=== PATIENT | female | born 1985 | race Caucasian/White ===

== ENCOUNTER → 2017-10-06 18:53 | Outpatient (CLI) | payer BC, SELFPAY ==
[2017-10-14 14:38] LABS: HPV Reflexed? NOT INDICATED
== END ==
PROVIDERS: Family Provider Internal Medicine; PCP Internal Medicine; Visit Provider Obstetrics & Gynecology
DX: Z12.4 Encounter for screening for malignant neoplasm of cervix (principal)
CPT/HCPCS: 88175; G0145

== ENCOUNTER 2018-05-21 17:53 | Emergency (ER) | payer BC, SELFPAY ==
[2018-05-21 17:54] VITALS: BP 163/87; PULSE 85; RESP 18; TEMP 36.9; O2SAT 99; BMI 30.2
[2018-05-21 19:07] LABS: Absolute Lymphocyte Count 2.71 X10^3/ul (0.83-4.51); Absolute Neutrophil Count 4.9 X10^3/uL (2.0-7.7); Basophil# 0.02 X10^3/uL; Basophil% 0.3 % (0-1); Eosinophil# 0.04 X10^3/uL; Eosinophils% 0.5 % (0-5); Hematocrit 44.1 % (37-47); Hemoglobin 15.1 g/dl (12.0-15.0); Lymphocyte # 2.71 X10^3/ul (4.0); Lymphocyte % 34.3 % (19-41); Mean Corp Hgb Conc 34.2 g/gl (32-36); Mean Corpuscular Hgb 31.4 pg (27.0-32.0); Mean Corpuscular Volume 91.7 fL (81-99); Monocyte# 0.23 X10^3/uL; Monocyte% 2.9 % (0-10); Neutrophil % 61.9 % (47-70); Platelet Count 229 K/mm3 (150-450); RBC Distribution Width CV 13.7 % (11.6-14.6); RBC Distribution Width SD 46.2 fl (35.1-43.9); Red Blood Count 4.81 M/mm3 (4.2-5.4); White Blood Count 7.9 K/mm3 (4.4-11.0)
[2018-05-21 19:08] LABS: POSITIVE COUNT NO; POSITIVE DIFFERENTIAL NO; POSITIVE MORPHOLOGY NO
[2018-05-21 19:22] LABS: Amylase 52 U/L (25-115); Anion Gap 8 (5-15); BUN 13 mg/dL (7-18); BUN/Creat Ratio 13.9 RATIO (10-20); Calcium,Total 9.2 mg/dL (8.5-10.1); Chloride 107 mmol/L (98-107); Creatinine, Serum 0.94 mg/dL (0.55-1.02); EST Glomerular Filtration Rate 73 mL/min (>60); Est Glom Filt Rate - Afr Amer 88 mL/min (>60); Estimated Creatinine Clearance 64.23 ml/min; Glucose 79 mg/dL (74-106); Lipase 87 U/L (73-393); Potassium 3.6 mmol/L (3.5-5.1); Sodium Level 140 mmol/L (136-145)
[2018-05-21 19:27] LABS: Mucous, Urine 0 SEEN /hpf (<or=2+); Red Blood Cells-Urine 0 SEEN /hpf (0-5)
[2018-05-21 19:51] VITALS: RESP 18
[2018-05-21 19:51] LABS: Color, Urine Yellow (Yellow); Glucose, Dipstick Normal (Normal); Ketone-Dipstick 50 mg/dl (Negative); Leukocyte Esterase-Dipstick 500 /ul (Negative); Nitrite-Dipstick Negative (Negative); Occult Blood-Urine 10 /ul (Negative); Protein-Dipstick 30 mg/dl (Negative); Urine Bilirubin Dipstick Negative (Negative); Urine Clarity Clear (Clear); Urine Urobilinogen Normal (Normal)
--- NOTE | 2018-05-21 19:58 | CT_ITS ---
STUDY: CT ABDOMEN AND PELVIS WITH CONTRAST REASON FOR EXAM: Female, 33 years old. Right-sided abdominal pain RADIATION DOSAGE (If Supplied By Facility): CTDIvol = ( 16.10 ) mGy, DLP = ( 874.99 ) mGycm TECHNIQUE: Transaxial images were obtained from the dome of the diaphragm to the symphysis pubis without oral contrast. 100ML ml of Isovue 300 contrast was administered. Sagittal and coronal images were reconstructed. # of Images: 399 Individualized dose optimization techniques were used for this CT. COMPARISON: None. FINDINGS: The visualized lung bases are unremarkable. The visualized portions of the heart are within normal limits. Normal liver. Normal gallbladder and extrahepatic biliary system. Normal spleen. Normal pancreas. Normal bilateral adrenal glands. Normal right kidney. Normal left kidney. Normal visualized stomach. Normal small intestine. Minor diverticular changes of the sigmoid colon without evidence for acute diverticulitis. The appendix does not fill with contrast however there is no evidence for dilatation, thickening of the hoang or periappendiceal inflammatory changes Normal abdominal aorta. Normal inferior vena cava. Normal retroperitoneum. Normal urinary bladder. Small fat-containing umbilical hernia.. Normal osseous structures. CT/Abdomen/Pelvis WITH Contrast IMPRESSION: Nonfilling of the appendix however no definitive evidence for acute appendicitis. Clinical correlation recommended Minor diverticular changes of the sigmoid colon without evidence for acute diverticulitis. No acute abnormalities Electronically Signed: Anatoly Wolf MD at 22:05 EDT , Service support ,
[2018-05-21 20:04] LABS: White Blood Cells 5-10 SEEN /hpf (0-5)
[2018-05-21 20:05] LABS: Bacteria 1+ /hpf (None Seen); Squamous Epithelial Cells - UA 25-50 SEEN /hpf (5-10)
[2018-05-21 21:00] VITALS: PULSE 72; RESP 18; O2SAT 98
[2018-05-21 22:16] VITALS: BP 161/31; PULSE 76; RESP 18; O2SAT 97
--- NOTE | 2018-05-21 23:29 | ED.DEP ---
ED Disposition - Plan for ED Patient: Chief Complaint: Abd Pain Instructions: ED Abdominal Pain Unkn Cause Referrals: Lyric Carrillo DO [Primary Care Provider] -
--- NOTE | 2018-05-22 00:04 | ED.DCSUM_ITS ---
- ER Visit Summary Date of Service: 05/22/18 Chief Complaint: Abdominal pain History of Present Illness: The patient is a 33 F presents today with abdominal pain. This started Thursday. Pain is in the right lower quadrant. She states it has been mild. She has a normal appetite. She denies nausea, vomiting, diarrhea. She has not had a fever. Denies possibility of . Denies other complaints. Physical Examination: Vitals are stable. Patient is afebrile. Alert no acute distress. HEENT exam is unremarkable. Neck is supple. Lungs are clear and equal bilaterally. Heart is regular rate and rhythm. Abdomen is soft right lower quadrant tenderness with no rebound or guarding. Extremities are unremarkable. Skin is warm and dry. No focal neurologic deficit. Remainder of exam is unremarkable. Emergency Department Course and Treatment: CBC, chemistries unremarkable. Urinalysis is contaminated with 25-[address] negative[address] abdomen pelvis with p.o. and IV contrast was obtained and shows nonfilling of the appendix however no definitive evidence for acute appendicitis. Clinical correlation recommended Minor diverticular changes of the sigmoid colon without evidence for acute diverticulitis. No acute abnormalities. On repeat exam patient has mild tenderness in the right lower quadrant with no guarding or rebound. Discussed with Dr. Asher. He reviewed the CT scan as well. He does not believe there is any signs of appendicitis at this time. She is advised strict return instructions should her symptoms worsen. Advised to otherwise follow up with primary care physician. Disposition: Discharge home Impression: Abdominal pain This note was generated with [employer] dictation software. It may contain incorrect words, spelling, and punctuation that were not noted in review of the chart prior to signing ED Disposition - Plan for ED Patient: Disposition: Home or Assisted Living Chief Complaint: Abd Pain Instructions: ED Abdominal Pain Unkn Cause Referrals: Lyric Carrillo DO [Primary Care Provider] -
[2018-05-22 00:45] LABS: Pregnancy, Serum, hCG Quali. NEGATIVE Negative (0-9 Nonpreg)
== END 2018-05-21 23:43 | disposition home or self-care (01) ==
PROVIDERS: Emergency Provider Emergency Medicine; Family Provider Internal Medicine; PCP Internal Medicine; Referring Provider Emergency Medicine
DX: R10.31 Right lower quadrant pain (principal)
CPT/HCPCS: 74177; 80048; 81001; 82150; 83690; 84703; 85025; 99283; Q9967; A4216

== ENCOUNTER → 2019-04-08 09:35 | Outpatient (CLI) | payer BC, SELFPAY ==
[2018-10-18 06:35] VITALS: BMI 37.0
[2019-04-08 12:35] LABS: Vitamin B12 296 pg/mL (211-911)
[2019-04-08 13:08] LABS: Cholesterol 174 mg/dL (200); High Density Lipoprotein 57 mg/dL; Triglycerides 88 mg/dL; Very Low Density Lipoprotein 18 mg/dL (5-40)
== END ==
PROVIDERS: Family Provider Family Medicine; PCP Family Medicine; Visit Provider Family Medicine
DX: E78.5 Hyperlipidemia, unspecified (principal); E53.8 Deficiency of other specified B group vitamins
CPT/HCPCS: 36415; 80061; 82607

== ENCOUNTER → 2020-02-28 | Outpatient (CLI) | payer BC, SELFPAY ==
[2018-10-18 06:35] VITALS: BMI 37.0
== END | disposition home or self-care (01) ==
PROVIDERS: PCP Family Medicine; Visit Provider Family Medicine Hospice and Palliative Medicine
DX: Z11.59 Encounter for screening for other viral diseases (principal)
CPT/HCPCS: 87635; 94799; U0003

== ENCOUNTER → 2020-04-26 09:44 | Outpatient (CLI) | payer BC, SELFPAY ==
[2018-10-18 06:35] VITALS: BMI 37.0
[2020-04-26 12:53] LABS: Absolute Lymphocyte Count 2.06 X10^3/uL (0.83-4.51); Absolute Neutrophil Count 4.3 X10^3/uL (2.0-7.7); Basophil# 0.02 X10^3/uL; Basophil% 0.3 % (0-1); Eosinophil# 0.08 X10^3/uL; Eosinophils% 1.2 % (0-5); Hematocrit 43.6 % (37-47); Hemoglobin 14.2 g/dL (12.0-15.0); Lymphocyte # 2.06 X10^3/ul (4.0); Lymphocyte % 30.2 % (19-41); Mean Corp Hgb Conc 32.6 g/dL (32-36); Mean Corpuscular Hgb 31.1 pg (27.0-32.0); Mean Corpuscular Volume 95.4 fL (81-99); Monocyte# 0.34 X10^3/uL; NRBC Flagged by Analyzer 0 % (0-5); Neutrophil # 4.29 X10^3/uL (2.7-7.7); Neutrophil % 62.9 % (47-70); Platelet Count 272 K/mm3 (150-450); RBC Distribution Width CV 12.5 % (11.6-14.6); RBC Distribution Width SD 43.4 fl (35.1-43.9); Red Blood Count 4.57 M/mm3 (4.2-5.4); White Blood Count 6.8 K/mm3 (4.4-11.0)
[2020-04-26 13:27] LABS: Vitamin B12 301 pg/mL (211-911)
[2020-04-26 13:35] LABS: Cholesterol 213 mg/dL (200); Glucose 85 mg/dL (74-106); High Density Lipoprotein 59 mg/dL; Triglycerides 110 mg/dL; Very Low Density Lipoprotein 22 mg/dL (5-40)
== END ==
PROVIDERS: PCP Family Medicine; Visit Provider Family Medicine
DX: Z00.00 Encounter for general adult medical examination without abnormal findings (principal); E53.8 Deficiency of other specified B group vitamins
CPT/HCPCS: 36415; 80061; 82607; 82947; 85025

== ENCOUNTER → 2020-05-09 | Outpatient (CLI) | payer BC, SELFPAY ==
[2018-10-18 06:35] VITALS: BMI 37.0
[2020-05-12 14:28] LABS: HPV Reflexed? NOT INDICATED
== END | disposition home or self-care (01) ==
LOC: LABSPEC 11:52
PROVIDERS: PCP Family Medicine; Visit Provider Obstetrics & Gynecology
DX: Z12.4 Encounter for screening for malignant neoplasm of cervix (principal)
CPT/HCPCS: 88175; G0145